=== PATIENT | male | born 1960 | race Caucasian/White ===

== ENCOUNTER 2017-02-10 02:03 | Inpatient (IN) | payer OTHER ==
[~2017-02-10] VITALS: Ht 167.6 cm; Wt 59.5 kg
[2017-02-10] VITALS (104 sets, daily range): BP systolic 54–242; BP diastolic 31–214
--- NOTE | ~2017-02-10 | HC ---
[facility] [place] [address] CONSULTATION Name: YFN MESSINA Kerri Room #: 236-P [facility] IN ..#: [id number] Admission: 02/10/17 Attend Phys: Christopher García MD Discharge: Date of : 62 Report #: [id number] THIS REPORT FOR: //name// CC: Christopher Reynolds DATE OF SERVICE: 02/10/2017 NEPHROLOGY CONSULTATION ATTENDING PHYSICIAN: Dr. García. REASON FOR CONSULTATION: Elevated creatinine with decreased urine output. HISTORY OF PRESENT ILLNESS: A 56-year-old gentleman recently hospitalized at [facility], currently we are obtaining those records. He has known severe nonischemic cardiomyopathy, hepatitis C, heavy history of alcohol abuse and IV methamphetamine abuse, who was discharged from [facility], was at home, developed respiratory deficiency, which worsened and was taken to the [place] emergency room [facility] by helicopter here. He was in severe shock with blood pressure in the 50s systolic, severely cyanotic and hypoxemic, was intubated, given pressors, fluids, and transferred here. PAST MEDICAL HISTORY: We know about nonischemic cardiomyopathy. He also has had atrial fibrillation, alcohol abuse, hepatitis C, apparently may have an elevated creatinine at baseline. HOME MEDICATIONS: Reportedly include amiodarone 400 mg b.i.d., spironolactone 25 mg b.i.d., Xarelto 20 mg daily, and carvedilol 6.25 mg b.i.d. REVIEW OF SYSTEMS: Cannot be taken. SOCIAL HISTORY: From the old charts, he has been a heavy smoker, heavy alcohol abuser. PHYSICAL EXAMINATION: GENERAL: The patient is seen in ICU. SKIN: Shows good turgor. No rashes. SKELETAL: Shows him to be well developed, well nourished, not obese. HEENT: Extraocular movements are full. Vision cannot be tested. Endotracheal tube in place. He is moving extremities about. NECK: Supple. CHEST: Shows diminished breath sounds at the bases in supine position. HEART: Irregularly irregular. ABDOMEN: Soft and nontender, quiet. EXTREMITIES: Show no edema. Peripheral pulses diminished. [facility] [address] [place] [address] CONSULTATION Name: YFN MESSINA Room #: 236-P [facility] IN [facility]#: [id number] Admission: 02/10/17 Attend Phys: Christopher García MD Discharge: Date of : 62 Report #: [id number] LABORATORY DATA: Hemoglobin is 15.6, white count 11.2, 6% bands, platelets 147,000. INR is 2.8. Sodium 137, potassium 5.8, chloride 101, bicarbonate 17, creatinine 1.8, and BUN 26. AST 2930, ALT 1202, bilirubin 4.4. ASSESSMENT AND PLAN: 1. Cardiogenic shock. He appears to be in cardiogenic shock. Sepsis also must be ruled out. Cultures and antibiotics appropriately have been given and taken. He has been resuscitated with IV fluids. His hypotension is a bit better. His urine output has been sluggish, we will check urinary sodium and creatinine for completeness because sepsis appears less likely. We will add some bicarbonate to his fluids. Continue to support and hopefully urine output will be restored. 2. Nonischemic cardiomyopathy with a very low ejection fraction. 3. History of hepatitis C. 4. History of substances abuse, methamphetamine, and alcohol. 5. History of atrial fibrillation with rapid ventricular response. <ELECTRONICALLY SIGNED> By: Joselo Acevedo MD 02/15/17 1143 0850 0953 Joselo Acevedo MD /nt
--- NOTE | ~2017-02-10 | P ---
[facility] [place] [address] PROCEDURE REPORT Name: YFN MESSINA Kerri Room #: 452-P [facility] IN M.R.#: [id number] Admission: 02/10/17 Attend Phys: Christopher García MD Discharge: Date of : 62 Report #: [id number] THIS REPORT FOR: //name// CC: Christopher Reynolds DATE OF SERVICE: 02/10/2017 PROCEDURE: Right subclavian triple-lumen catheter insertion. INDICATION: Respiratory failure, profound hypotension, bradycardia with no intravenous access and unable to obtain intravenous access. PROCEDURE NOTATION: I was called urgently at the bedside after patient arrived for stat consultation. Patient noted to have intraosseous devices in both tibia, but no IV access. Nursing unable to obtain IV access; however, the patient was on significant fluid resuscitation and pressors. Right subclavian site was chosen. The patient noted to be anticoagulated; however, given the emergent nature, this was chosen for the site of insertion. Site was cleansed with 2% chlorhexidine gluconate using maximal barrier method including full body eye sheet hat, mask, gown and gloves and using sterile technique. The patient then received 4 mL of 1% lidocaine local to the right clavicular area for planned insertion. Using the introducer needle and using an infraclavicular approach, the insertion needle was inserted and passed medially towards the first, third bend in the clavicle until venous blood was aspirated. Multiple attempts with venous blood was aspirated; however, unable to pass J wire. The patient was then given Trendelenburg with better ease of access to the vein with persistent flow. J-wire was advanced. Needle was removed, some ectopy noted on the monitor. A small dermotomy was made using the scalpel blade. A dilator was then advanced over the J wire using Seldinger technique, a triple lumen catheter was then inserted over the J wire and sutured in place at 18 cm. A Biopatch was put in place and a dressing Op-Site was put in place. Because of some oozing around the catheter site, pressure was applied by nursing at the end of procedure. Chest x-ray confirmed good position at the junction of the superior vena cava and the right atrium with no pneumothorax. The patient tolerated well with only minimal blood loss. <ELECTRONICALLY SIGNED> By: Artur Bustamante MD 02/24/17 1304 0610 0744 Artur Bustamante MD /nt
--- NOTE | ~2017-02-10 | EKG ---
[address] [place] [address] ELECTROCARDIOGRAM REPORT Name: YFN MESSINA Room #: 236-P ADM IN M.R.#: [id number] Admission: 02/10/17 Attend Phys: Christopher García MD Discharge: Date of : 62 Report #: [id number] THIS REPORT FOR: //name// [facility] Test Date: 2017-02-10 Test Time: 04:15:35 Pat Name: YFN MESSINA Department: Room: 236 P Gender: M Litigation Legal Assistant: saqib : 1960 Requested By: Celsa Jade Order Number: [id number] MD: Kane Mon Measurements Intervals [place] Rate: 89 P: MT: QRS: 66 QRSD: 144 T: 37 QT: 504 QTc: 614 Interpretive Statements Atrial fibrillation Right bundle branch block Compared to ECG 07/19/2014 08:44:36 Ventricular premature complex(es) now present Right bundle-branch block now present Sinus rhythm no longer present Electronically Signed On 02-10-2017 8:04:32 CDT by Kane Mon [email or web address] <ELECTRONICALLY SIGNED> By: Kane Mon MD, [facility] 02/10/17 0804 0415 0415 Kane Mon MD, [facility] /EPI
--- NOTE | ~2017-02-10 | HC ---
[facility] [place] [address] CONSULTATION Name: YFN MESSINA Kerri Room #: 452-P [facility] IN ..#: [id number] Admission: 02/10/17 Attend Phys: Christopher García MD Discharge: 03/03/17 Date of : 62 Report #: [id number] THIS REPORT FOR: //name// CC: Christopher Reynolds PALLIATIVE CARE CONSULTATION REQUESTING PHYSICIAN: Bola Maldonado MD REASON FOR CONSULTATION: Palliative care consultation. HISTORY OF PRESENT ILLNESS: The patient is a 57-year-old male who presented on 02/10, to [facility]. Unfortunately, at that time, the patient presented from [facility] and was found to have AFib with RVR, at that time was in shock, was put on dopamine and also ketamine and urgently life-flighted to [facility]. Shock was present as well, 70s/40s blood pressure, epinephrine was added. The patient was ventilated at [facility], which had to continue, eventually requiring tracheostomy. Unfortunately, the patient has had a PEA and jayden arrest as well on 02/10. He has not progressed to the point where he can tolerate T-piece well, been able to CPAP with some ability, but has not had significant improvement since and has had significant delirium. PAST MEDICAL HISTORY: Atrial fibrillation, chronic kidney disease stage 3, history of myocardial infarction, hepatitis C, encephalopathy from alcohol and methamphetamine use, multiple CVAs, gastroesophageal reflux disease, COPD, systolic heart failure with an EF of 15% previously. PAST SURGICAL HISTORY: Cardioversion in 2015 and catheterization also in 2015. SOCIAL HISTORY: Alcohol and methamphetamine as well as tobacco abuse in the past. , Jovita is present today, does have a brother and a son who are involved in picture. There was some confusion as has a signed DPOA. The son says that he has a signed DPOA. ____ was in our system, unfortunately we were unable to locate this. The patient's son does not have any particular copy of DPOA. There appears to be some particular argument in the family with regards to this. ALLERGIES: ZITHROMAX. MEDICATIONS AT HOME: These included amiodarone 400 mg b.i.d., Tylenol, spironolactone 25 mg b.i.d., Xarelto 20 mg daily, and carvedilol 6.25 b.i.d. REVIEW OF SYSTEMS: Unobtainable at this time from the patient. PHYSICAL EXAMINATION: [address] [address] CONSULTATION Name: YFN MESSINA Kerri Room #: 452-P [facility].#: [id number] Admission: 02/10/17 Attend Phys: Christopher García MD Discharge: 03/03/17 Date of : 62 Report #: [id number] VITAL SIGNS: On today's visit include temperature 37.8, pulse 87, respirations 18, blood pressure was 97/59, and 95% on a ventilator. GENERAL: The patient appears to have occasional grimacing, especially to touch stimuli, does not appear to be in acute distress at this point. CARDIOVASCULAR: Regular rate and rhythm. No apparent murmur. RESPIRATORY: Coarse breath sounds diffusely. ABDOMEN: Soft, nondistended, nontender. There are active bowel sounds, but diminished. EXTREMITIES: No apparent edema. LABORATORY DATA: These include hemoglobin 11.7, white blood cell 11.2. Potassium 3.4, creatinine 1.9. ASSESSMENT AND PLAN: The patient is a 57-year-old male with the following medical concerns. 1. Acute hypoxic respiratory failure. I did have a 45-minute advanced care planning discussion with the patient's spouse in front of the family. The patient though appeared to be leaning towards extubation in the future, but I did discuss this also with the patient's brother, they are having a family meeting at around 4:00 this evening to discuss further, at which time they may make a decision as to the planning if they want to pursue this. I did discuss other available options at this time, for continued intubation, continued tracheostomy and mechanical ventilation including long-term acute care. They did not appear to be amenable to this. There is some concern with regards to the son who is apparently concerned about ____ and her durable power of energy attorney status, although there is no confirmation that he has any overriding durable power of energy attorney concerning this. We will revisit tomorrow with regards to this. 2. Septic shock. This has resolved for the most part. Unfortunately, condition continues to be severe. 3. Delirium. Again, he has not had a meaningful recovery from previous. I did discuss the nature of delirium with both spouse and brother and discussed the possibility of recovery from delirium as well as the possibility of permanence or at the very least considerable time before any improvement. 4. Atrial fibrillation. Management per primary team. I will continue to follow with this patient. Please call us for any questions regarding this patient's care. We will follow up to see if a decision was made with regards to care tomorrow. <ELECTRONICALLY SIGNED> By: Nasir Pandey DO 03/30/17 1357 058 Momo Pandey DO /andrei
--- NOTE | ~2017-02-10 | EKG ---
[address] [address] ELECTROCARDIOGRAM REPORT Name: YFN MESSINA Room #: 236- ADM IN M.R.#: [id number] Admission: 02/10/17 Attend Phys: Christopher García MD Discharge: Date of : 62 Report #: [id number] THIS REPORT FOR: //name// [facility] Test Date: 2017-02-17 Test Time: 19:39:03 Pat Name: YFN MESSINA Department: Room: 236 Gender: M Artillery Specialist: Juliana LYONS : 1960 Requested By: Obed Ring Order Number: [id number] MD: Kane Mon Measurements Intervals [place] Rate: 93 P: RI: QRS: 32 QRSD: 87 T: -26 QT: 411 QTc: 512 Interpretive Statements Atrial fibrillation Ventricular premature complex Nonspecific ST and T wave abnormality Prolonged QT interval Compared to ECG 02/14/2017 08:04:32 Nonspecific change in the ST and T-wave segments Electronically Signed On 02-18-2017 9:01:09 CDT by Kane Mon [email or web address] <ELECTRONICALLY SIGNED> By: Kane Mon MD, [facility] 02/18/17900 38 38 Kane Mon MD, [facility] /EPI
--- NOTE | ~2017-02-10 | HC ---
[facility] [place] [address] CONSULTATION Name: YFN MESSINA Room #: 452-P [facility] IN .R.#: [id number] Admission: 02/10/17 Attend Phys: Christopher García MD Discharge: Date of : 62 Report #: [id number] THIS REPORT FOR: //name// CC: Celsa Reynolds DATE OF SERVICE: 02/10/2017 REFERRING PROVIDER: DANN Sun. Hospitalist Service. REASON FOR CONSULTATION: Respiratory failure. CHIEF COMPLAINT: Shortness of breath. HISTORY OF PRESENT ILLNESS: Our group was asked emergently to see the patient early this morning. The patient arrived from [facility], hypotensive, cyanotic, on mechanical ventilatory support with intraosseous access. The patient is on vent, unresponsive, unable to give any history, family not available. Apparently, he presented to the Emergency Department there after recent discharge from [facility] of unclear diagnosis, was found to be in shock and bradycardic. The patient was again started on fluid boluses, epinephrine, dopamine intraosseous and subsequently transferred here. No other immediate history is available. The patient apparently anticoagulated with Eliquis by medications, was noted to be profoundly hypoxic and relatively hypercapnic, acidemic with an elevated lactate in spite of 100% FiO2 on mechanical ventilatory support. Initial drug screen is negative. ALLERGIES: Include azithromycin. PAST MEDICAL HISTORY: 1. Cardiomyopathy. 2. History of prior alcohol with amphetamine abuse. 3. History of atrial fibrillation. 4. History of hepatitis C. 5. Status of treatment uncertain. 6. Gastroesophageal reflux disease. 7. Underlying COPD. 8. Ongoing tobacco abuse. 9. Chronic renal insufficiency stage 3 by notes. SOCIAL HISTORY: Past drug and tobacco abuse, unclear active use, unable to obtain any further history. FAMILY HISTORY: Unobtainable due to current status. [facility] [address] [place] [address] CONSULTATION Name: YFN MESSINA Kerri Room #: 452-P [facility] IN [facility].#: [id number] Admission: 02/10/17 Attend Phys: Christopher García MD Discharge: Date of : 62 Report #: [id number] REVIEW OF SYSTEMS: Otherwise, unobtainable due to his current status. OUTPATIENT MEDICATIONS: Include lorazepam, carvedilol, lisinopril, aspirin, apixaban. PHYSICAL EXAMINATION: GENERAL: The patient is intubated, tachypneic, poorly responsive, some posturing noted at times. ENT: Endotracheal tube in place, cannot fully access oropharynx. NECK: Supple. No lymphadenopathy. Jugular venous pressure did not appear elevated. LUNGS: Diminished, tachypneic with diffuse expiratory wheezes noted. CARDIOVASCULAR: Heart was regular. I could not appreciate murmurs, although heart tones were distant. ABDOMEN: Soft, did not appear tender or have any masses, no ascites appreciated. EXTREMITIES: Bilateral tibial intraosseous device is in place. Significant livedo reticularis noted over both knees and feet with some acrocyanosis of the lower extremities, markedly diminished pulses throughout, although present. LABORATORY DATA: White blood cell count 11,000, hemoglobin 16, hematocrit 48, platelet count 147, MCV is 105. Sodium 137, potassium 5.8, chloride 101, bicarbonate 17, BUN 26, creatinine 1.8, glucose 107. AST 2930, and ALT 1202. Troponin 0.24. INR was 2.8. Urinalysis with significant proteinuria, some blood noted in the urine, bilirubin noted in the urine. Initial arterial blood gas on assist control, rate of 16, tidal volume 500, FiO2 of 100% revealed pH 7.18, pCO2 of 48, pO2 of 76, bicarbonate 17, lactate was 10. IMPRESSION: 1. Significant hypercapnic and hypoxemic respiratory failure of unclear etiology, chest radiograph appears clear. We will consider the possibility of early sepsis. Pulmonary embolism certainly should be considered despite being anticoagulated. Given the findings on exam and radiographs, this does not appear to be an acute congestive heart failure process. Findings may be related to early acute respiratory distress syndrome, also associated with his acute events or perhaps just prolonged poor ventilation in general. 2. History of atrial fibrillation, now with some bradycardia. Cardiology consultation pending. 3. History of non-ischemic cardiomyopathy. 4. Chronic obstructive pulmonary disease. 5. History of substance abuse. 6. History of tobacco abuse. 7. Elevated liver function tests. SUGGESTIONS: 1. Treat as sepsis. We will check CVP, trend lactate, check cultures, add [address] [address] CONSULTATION Name: YFN MESSINA Room #: 452-P [facility] IN M.R.#: [id number] Admission: 02/10/17 Attend Phys: Christopher García MD Discharge: Date of : 62 Report #: [id number] antibiotics. 2. Obtain records from [facility]. 3. Discuss with family when available for more acute events. 4. Check ventilation/perfusion scan and lower extremity venous Dopplers. 5. Echocardiogram. 6. ICU care. 7. Central venous catheter insertion and removal of intraosseous devices. 8. Further recommendations to follow. Total critical care time, one hour, not including any procedures. <ELECTRONICALLY SIGNED> By: Artur Bustamante MD 02/24/17 1304 0607 0735 Artur Bustamante MD /nt
--- NOTE | ~2017-02-10 | 2DMMODE ---
[facility] [address] [place] [address] 2 D/M-MODE ECHOCARDIOGRAM Name: YFN MESSINA Room #: 236-P ADM IN M.R.#: [id number] Admission: 02/10/17 Attend Phys: Christopher García MD Discharge: Date of : 62 Date of Service: 02/10/17 0853 Report #: [id number] THIS REPORT FOR: //name// APPROVED REPORT Study performed: 02/10/2017 07:18:01 EXAM: Comprehensive 2D, Doppler, and color-flow Echocardiogram Patient Location: ICU Room #: 236 Status: routine BSA: 1.82 HR: 105 bpm BP: 162/121 mmHg Rhythm: Atrial Fibrillation Other Information Study Quality: Good/ICU on vent Indications Bradycardia, respiratory failure, possible pulmonary embolism. Hx: Cardiomyopathy, Afib, drug and alcohol abuse. 2D Dimensions RVDd: 45.25 mm LVEF(%): 34.42 (>50%) IVSd: 12.86 (7-11mm) LVOT Diam: 21.67 (18-24mm) LVDd: 49.44 mm PWd: 13.04 (7-11mm) Ascending Ao: 42.37 (22-36mm) LVDs: 41.30 (25-40mm) Aortic Root: 42.46 mm Sanders's LVEF: 34.42 % Volumes Left Atrial Volume (Systole) Single Plane 4CH: 67.81 mL Single Plane 2CH: 67.15 mL LA ESV Index: 41.00 mL/m2 Aortic Valve AoV Peak Jacobo.: 1.44 m/s AO Peak Gr.: 8.77 mmHg LVOT Max P.94 mmHg AO Mean Gr.: 5.66 mmHg AO V2 Mean: 1.13 m/s LVOT Max V: 0.67 m/s AO V2 VTI: 20.71 cm PADMINI Vmax: 1.72 cm2 [facility] [place] [address] 2 D/M-MODE ECHOCARDIOGRAM Name: YFN MESSINA Room #: 236-P [facility] IN .R.#: [id number] Admission: 02/10/17 Attend Phys: Christopher García MD Discharge: Date of : 62 Date of Service: 02/10/17 0853 Report #: [id number] Mitral Valve MV Decel. Time: 85.41 ms MV E Max Jacobo.: 0.64 m/s Pulmonary Valve PV Peak Jacobo.: 0.38 m/s PV Peak Gr.: 0.58 mmHg Tricuspid Valve TR Peak Jacobo.: 2.61 m/s RAP Estimate: 15.00 mmHg TR Peak Gr.: 27.20 mmHg PA Pressure: 42.00 mmHg Left Ventricle The left ventricle is normal size. Mild concentric left ventricular hypertrophy. Left ventricular systolic function is severely decreased. LVEF 25%. This study is not technically sufficient to allow evaluation of the LV diastolic function due to atrial fibrillation. Right Ventricle Right ventricle is moderately dilated. Right ventricular systolic function is moderate to severely reduced. Atria Left atrium is moderately dilated. The atrial septum is aneurysmal. Right atrium is moderately dilated. Aortic Valve Aortic valve is moderately calcified. Cannot rule out bicuspid valve Mild to moderate aortic regurgitation. Mild aortic stenosis. Calculated PADMINI by the continuity equation is 1.7cm2. Mitral Valve Mitral valve leaflets are normal Trace mitral regurgitation. Tricuspid Valve The tricuspid valve is normal in structure. There is moderate tricuspid regurgitation. The right atrial pressure is estimated at 15 mmHg. There is moderate pulmonary hypertension with an estimated PAP of 42mmHg. Pulmonic Valve The pulmonary valve is normal in structure. Trace pulmonic regurgitation. [facility] [address] [place] [address] 2 D/M-MODE ECHOCARDIOGRAM Name: YFN MESSINA Room #: 236-P [facility] IN [facility]#: [id number] Admission: 02/10/17 Attend Phys: Christopher García MD Discharge: Date of : 62 Date of Service: 02/10/17 0853 Report #: [id number] Great Vessels Aortic root is dilated at 4.2cm. Ascending aorta is dilated at 4.2cm. IVC is dilated and collapses <50% with inspiration. Pericardium There is no pericardial effusion. Left pleural effusion noted. <Conclusion> Left ventricular systolic function is severely decreased. LVEF 25%. Right ventricle is moderately dilated. Both atria are moderately dilated. Atrial septal aneurysm Aortic valve is moderately calcified, possibly bicuspid Mild to moderate aortic regurgitation. Probably mild aortic stenosis. Calculated PADMINI by the continuity equation is 1.7cm2. Mitral valve leaflets are normal. No mitral insufficiency Pulmonary artery pressure of 42mmHg There is no pericardial effusion. Ascending aorta is dilated at 4.2cm. Left pleural effusion noted. <ELECTRONICALLY SIGNED> By: Kane Mon MD, FACC 02/10/17 0853 Kane Mon MD, FACC /INF
--- NOTE | ~2017-02-10 | EKG ---
[address] [address] ELECTROCARDIOGRAM REPORT Name: YFN MESSINA Room #: 236- ADM IN M.R.#: [id number] Admission: 02/10/17 Attend Phys: Christopher García MD Discharge: Date of : 62 Report #: [id number] THIS REPORT FOR: //name// [facility] Test Date: 2017-02-14 Test Time: 08:04:32 Pat Name: YFN MESSINA Department: Room: 236 Gender: M Advertising Sales Consultant: CHARLETTE : 1960 Requested By: Jp Sutton Order Number: [id number] MD: Kane Mon Measurements Intervals [place] Rate: 103 P: IN: QRS: 3 QRSD: 91 T: 220 QT: 363 QTc: 475 Interpretive Statements Atrial fibrillation Ventricular premature complex Abnormal R-wave progression, late transition Abnormal T, diffuse leads Compared to ECG 02/10/2017 04:15:35 Ventricular premature complex(es) now present Right bundle-branch block no longer present Electronically Signed On 02-15-2017 8:19:20 CDT by Kane Mon [email or web address] <ELECTRONICALLY SIGNED> By: Kane Mon MD, [facility] 02/15/1719 3 3 Kane Mon MD, [facility] /EPI
--- NOTE | ~2017-02-10 | 2DMMODE ---
[facility] [address] [place] [address] 2 D/M-MODE ECHOCARDIOGRAM Name: YFN MESSINA Kerri Room #: 236-P ADM IN .R.#: [id number] Admission: 02/10/17 Attend Phys: Christopher García MD Discharge: Date of : 62 Date of Service: 02/16/17 1541 Report #: [id number] THIS REPORT FOR: //name// APPROVED REPORT Study performed: 02/16/2017 14:02:14 EXAM: Comprehensive 2D, Doppler, and color-flow Echocardiogram Patient Location: ICU Room #: 236 Status: routine BSA: 1.78 HR: 90 bpm BP: 159/90 mmHg Other Information Study Quality: Good Indications Aortic Valve Disease CVA/TIA Atrial Fibrillation Left Ventricle The left ventricle is normal size. There is global hypokinesis of the left ventricle. Mild concentric left ventricular hypertrophy. Left ventricular systolic function is severely decreased. LVEF is 25%. Right Ventricle Right ventricle is dilated. Right ventricle is hypokinetic. Atria Left atrium is dilated. Interatrial septum is intact without evidence of ASD or PFO with clor flow doppler or agitated saline injection. Atrial septal aneurysm is present without PFO. Right atrium is dilated. Aortic Valve Aortic valve is calcified. Cannot rule out bicuspid Aortic valve. This study was of limited quality, unable to rule out vegetation There is normal aortic valve excursion. Mitral Valve [facility] [address] [place] [address] 2 D/M-MODE ECHOCARDIOGRAM Name: YFN MESSINA Room #: 236-P ADM IN M.R.#: [id number] Admission: 02/10/17 Attend Phys: Christopher García MD Discharge: Date of : 62 Date of Service: 02/16/17 154 Report #: [id number] The mitral valve is normal in structure. Tricuspid Valve The tricuspid valve is normal in structure. Pulmonic Valve The pulmonary valve is normal in structure. Great Vessels The aortic root is normal in size. Pericardium There is no pericardial effusion. <Conclusion> LVEF is 25%. There is global hypokinesis of the left ventricle. Interatrial septum is intact without evidence of ASD or PFO with clor flow doppler or agitated saline injection. Atrial septal aneurysm is present without PFO. Right ventricle is hypokinetic. Left atrium is dilated. Right atrium is dilated. This study was of limited quality, unable to rule out vegetation <ELECTRONICALLY SIGNED> By: Sekou Fung MD, FACC 02/16/17 1541 [id number] Sekou Fung MD, FACC /INF
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
--- NOTE | ~2017-02-10 | HC ---
[facility] [place] [address] CONSULTATION Name: YFN MESSINA Kerri Room #: 236-P ADM IN M.R.#: [id number] Admission: 02/10/17 Attend Phys: Christopher García MD Discharge: Date of : 62 Report #: [id number] THIS REPORT FOR: //name// CC: Obed Gary MD [facility] Joselo Bustamante MD DATE OF SERVICE: 02/10/2017 GASTROENTEROLOGY CONSULTATION Patient of Dr. Christopher García. CHIEF COMPLAINT: The patient is a 56-year-old white male who is known to me from previous evaluation in June 2004. The patient presented to the [facility] via [facility] from [facility] in [place], [place] who was in acute respiratory failure, hypotensive and atrial fibrillation with rapid ventricular response and in acute respiratory failure. He was unresponsive at the time of arrival according to the patient's hospital chart. We are asked to see this patient for possible etiologies of a sudden sharp rise in his liver enzymes. PAST MEDICAL HISTORY: Patient has a past medical history of cardiomyopathy, hypertension, hyperlipidemia, chronic hepatitis C, alcohol abuse, methamphetamine abuse, and supraventricular tachycardia. PAST SURGICAL HISTORY: Significant for ankle surgery and hernia repair. This historical data is obtained from the patient's records as no family member was present and the patient is unresponsive at the time of my consultation. ALLERGIES: AZITHROMYCIN. MEDICATIONS: His medications prior to admission included acetaminophen, amiodarone, carvedilol, Xarelto, and Aldactone. SOCIAL HISTORY: The patient used to be a very heavy smoker. He does drink alcohol. He does use street drugs. He has shared IV needles in the past. FAMILY HISTORY: Significant for colon cancer in his father. REVIEW OF SYSTEMS: Not obtainable at this time due to circumstances mentioned above. [facility] [address] [place] [address] CONSULTATION Name: YFN MESSINA Room #: 236-[facility]#: [id number] Admission: 02/10/17 Attend Phys: Christopher García MD Discharge: Date of : 62 Report #: [id number] PHYSICAL EXAMINATION: GENERAL: Reveals a well-developed, well-nourished, somewhat obese 56-year-old white male who is intubated on the vent and unresponsive. HEENT: Normocephalic and atraumatic. He may be mildly icteric. His nose is cyanotic in appearance. I am told on arrival, he was completely cyanotic. HEART: Irregularly irregular, rate is controlled at this time. LUNGS: Clear to auscultation with decreased breath sounds at the bases. ABDOMEN: Distended, soft, no bowel sounds are heard. The patient moves his legs with deep palpation of the abdomen, which may mean discomfort. He has no acute peritoneal signs at the time of my examination. There is no rebound or guarding. EXTREMITIES AND INTEGUMENTARY: Cool, dry and pale. I cannot palpate peripheral pulses. He is currently on pressor support with IV medications. Healing and crusted lesions, scattered all over his body that were brown in color, non-draining. These may be from skin popping of drugs. VITAL SIGNS: Blood pressure is currently 106/84, pulse 110, and respirations 30. He has been afebrile since he has been at the hospital. His height is 5 feet 6 inches, his weight 171 pounds. SIGNIFICANT LABORATORY DATA: Showed a BUN of 26, creatinine of 1.8. AST was 2930, ALT was 1202, alk phos was 82. Total bilirubin was 4.4, albumin was 3.1, ammonia 42. Lactic acid level, not obtained at this point. Troponin 0.24, it is later jaki to 6.31. BNP was greater than 70,000. INR was 2.8. Drug screen was negative. CBC showed a white blood cell count of 11.2, hemoglobin 15.6, hematocrit 48.4, MCV 105. The rest of his indices and RDW are normal; platelets 147,000. He had 69 polys, 6 bands, 1 metamyelocyte, 1 ____. He was noted to have 1+ macrocytosis. TSH was ____ in the past with a history of positive hepatitis C in the past. He is MRSA positive. His initial blood gas showed pH of 7.178, pCO2 of 47, pO2 of 75.8, bicarb 17, base excess -11, lactate 10.14, his oxygen saturation was 89%, this was on 100% FiO2 with respiratory rate of 16, tidal volume 500 and PEEP of 5. The patient had a lower venous extremity Doppler study that was negative for clots. Chest x-ray from line placement showed adequate line placement. Nuclear medicine lung perfusion scan was low probability for pulmonary embolus. CT scan of the chest showed a large right pleural effusion layering dependently. Heart was enlarged. There was a lower right rib posterior fracture. Calcification in the inferior thyroid suggesting calcified thyroid mass 11 mm in size, moderate to extensive ascites, no free intraperitoneal air or definite pneumotosis intestinalis. 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 Liver showed fatty infiltration. Gallbladder was somewhat limited in detail as it was nondistended. Left adrenal gland showed some thickening with possible hyperplasia or small mass, extensive ascites was noted. There was possible colonic wall thickening of the sigmoid and descending, ischemia could cause this. There was no definite pneumotosis coli. There was fatty infiltration of the liver. CT of the head was negative for acute changes. [facility] [address] [place] [address] CONSULTATION Name: YFN MESSINA Room #: 236-P [facility] IN .[place].#: [id number] Admission: 02/10/17 Attend Phys: Christopher García MD Discharge: Date of : 62 Report #: [id number] IMPRESSION: 1. Most likely this liver enzyme elevation is due to shock liver from hypotension that occurred over the prior 24-hour period. The patient required high-dose pressors while in the hospital and I was told that his blood pressure upon arrival to the hospital was 50 systolic and that he was unresponsive. He probably also has some degree of hepatic encephalopathy. 2. Potentially complicating factors include his history of chronic hepatitis C and alcohol use. He may have cirrhosis at this time, prolonged hypotension in this setting can be devastating to a cirrhotic liver or normal liver for that matter and potentially cause complete liver failure. 3. Ascites, moderately extensive, possible spontaneous bacterial peritonitis exists here. 4. Prolonged INR, probably multifactorial including sepsis, chronic liver disease, and shock liver. 5. History of chronic hepatitis C. 6. History of chronic drug and alcohol use. 7. Elevated lactate level that apparently is rising, may be due to prolonged hypoxemia and this resulting ischemia of organs, this includes possible ischemic colitis of the left colon and possible hepatic ischemia. 8. Acute renal injury. 9. Cardiogenic shock, prior history of left ventricular ejection fraction of 15%. 10. Large right pleural effusion, may be related to ascites or trauma. 11. Elevated troponin of 6.31 in a patient with a non-ST segment elevation myocardial infraction. 12. Methicillin-resistant Staphylococcus aureus. 13. Atrial fibrillation with a history of rapid ventricular response. He did have some bradycardia during this admission. 14. Macrocytosis. 15. Calcified inferior thyroid nodule, possible left adrenal adenoma. 16. The patient has some ____ in his left lung, has probably been there a while. 17. Thickened descending and sigmoid colon tovar, possibly ischemia due to hypotension and poor perfusion. 18. Family history of colon cancer in his father. RECOMMENDATIONS: My recommendations are as follows. 1. I would recommend obtaining medical records from [facility] from his recent admission there. 2. We would maintain adequate blood pressure for good perfusion of his liver and all organs. 3. We would consider adding lactulose to his regimen to prevent development of cerebral edema and uncal herniation. 4. Correct INR if there are signs of bleeding. 5. Monitor liver enzymes, INR and try to avoid hepatotoxic medications if possible. [facility] [address] [place] [address] CONSULTATION Name: YFN MESSINA Room #: 236-P [facility] IN M.R.#: [id number] Admission: 02/10/17 Attend Phys: Christopher García MD Discharge: Date of : 62 Report #: [id number] 6. Agree with broad-spectrum antibiotics for possible spontaneous bacterial peritonitis and possible surgical intervention for possible left colonic ischemia, although the patient is an extremely poor surgical candidate due to his multiple acute and chronic medical problems. 7. Overall, his prognosis is extremely grim based on the events of this day and his comorbidities. Thank you very much for allowing me to participate in his care. <ELECTRONICALLY SIGNED> By: Amanda Sheikh DO 02/12/17 1011 1118 [id number] Amanda Sheikh DO /nt
[~2017-02-10 02:03] MED LIST: ALDACTONE25 MG PO; CARDIZEM CD120 MG PO; CEPACOL SORE T1 EAC8 PO; CHILDREN'S ASPI81 M1 PO; COREG6.25 MG PO; PACERONE 200 M200 M1 PO; TYLENOL325 MG PO; XARELTO10 MG PO
[2017-02-10 04:07] LABS: ABG SAMPLE TYPE ARTERIAL; HCO3 17.3 mmol/L (22.0-26.0); LACTATE 10.14 mmol/L (0.5-2.0); O2(CT) 18.7 mL/dL (15.0-23.0); PCO2 47.6 mmHg (35.0-45.0); PO2 75.8 mmHg (80.0-100.0); TIDAL VOLUME 500 ml; sO2 91.6 % (92.0-98.0); tCO2 18.7 mmol/L (24.0-30.0)
[2017-02-10 04:08] LABS: pH 7.178 (7.360-7.450)
[2017-02-10 04:12] LABS: HEMATOCRIT 48.4 % (42.0-52.0); HEMOGLOBIN 15.6 gm/dL (14.0-18.0); MCH 33.9 pg (26.0-34.0); MCHC 32.3 g/dL (28.0-37.0); PLATELET COUNT 147 thou/uL (150-400); RBC 4.61 mil/uL (4.50-6.00); RDW 16.5 % (10.5-14.5); WBC 11.2 thou/uL (4.0-11.0)
[2017-02-10 04:14] LABS: MANUAL DIFF YES
[2017-02-10 04:27] LABS: APTT 36.9 Seconds (24.5-32.8); CALCIUM 8.2 mg/dL (8.5-10.1); CREATININE 1.8 mg/dL (0.7-1.3); INR 2.8; POTASSIUM 5.8 mmol/L (3.5-5.1); PROTIME 28.6 Seconds (9.3-11.4)
[2017-02-10 04:32] LABS: URINE BILIRUBIN 2+ (Negative); URINE BLOOD 3+ (Negative); URINE COLOR YELLOW; URINE GLUCOSE-RANDOM* NEGATIVE (Negative); URINE KETONES NEGATIVE (Negative); URINE LEUKOCYTES-REFLEX NEGATIVE (Negative); URINE PROTEIN (DIPSTICK) 3+ (Negative); URINE SPECIFIC GRAVITY >= 1.030 (1.003-1.035)
[2017-02-10 04:38] LABS: ALBUMIN 3.1 g/dL (3.4-5.0); MAGNESIUM 2.1 mg/dL (1.8-2.4); TOTAL BILIRUBIN 4.4 mg/dL (<0.1-1.0); TROPONIN-I 0.24 ng/mL (<0.04-0.07)
[2017-02-10 04:53] LABS: ICTOTEST (BILI CONFIRMATORY) Positive (Negative)
[2017-02-10 04:58] LABS: TOTAL PROTEIN 7.3 g/dL (6.4-8.2)
[2017-02-10 05:00] LABS: CASTS None Seen /LPF (None Seen); SQUAMOUS None Seen /LPF (0-3); URINE WBC-REFLEX 0-5 Rare /HPF (0-5)
[2017-02-10 05:01] LABS: CRYSTALS None Seen /LPF (None Seen); HYALINE CASTS 4-10 Moderate /LPF (None Seen); TRANSITIONAL EPITHEL CELL 4-10 Moderate /LPF (None Seen)
[2017-02-10 05:20] LABS: ABSOLUTE NEUTROPHILS 8.4 thou/uL (1.4-8.2); ANISOCYTOSIS 1+; MACROCYTES 1+; METAMYELOCYTES 1 %; MYELOCYTES 1 %; TOTAL CELL COUNT 100
[2017-02-10 05:28] LABS: AMP/METHAMP Negative (Negative); BARBITURATES Negative (Negative); BENZODIAZEPINES Negative (Negative); COCAINE Negative (Negative); METHADONE Negative (Negative); OPIATES Negative (Negative); PCP Negative (Negative); THC Negative (Negative)
[2017-02-10 07:13] LABS: ABG SAMPLE TYPE ARTERIAL; BE(vivo) -10.1 mmol/L (-2 to +3); HCO3 14.8 mmol/L (22.0-26.0); O2(CT) 20.8 mL/dL (15.0-23.0); O2Hb 93.7 % (92.0-98.0); PCO2 30.7 mmHg (35.0-45.0); PO2 81.3 mmHg (80.0-100.0); sO2 95.1 % (92.0-98.0); tCO2 15.8 mmol/L (24.0-30.0)
[2017-02-10 07:14] LABS: LACTATE 8.67 mmol/L (0.5-2.0); STICK SITE L.BRACHIAL; TIDAL VOLUME 600 ml; pH 7.302 (7.360-7.450)
[2017-02-10 11:57] LABS: URINE CREATININE-RANDOM* 139.8 mg/dL
[2017-02-10 14:00] LABS: ALBUMIN 2.8 g/dL (3.4-5.0); CALCIUM 8.2 mg/dL (8.5-10.1); CREATININE 1.9 mg/dL (0.7-1.3); PHOSPHORUS 5.5 mg/dL (2.5-4.9)
[2017-02-10 14:02] LABS: POTASSIUM 4.5 mmol/L (3.5-5.1)
[2017-02-10 15:16] LABS: HEMATOCRIT 46.1 % (42.0-52.0); HEMOGLOBIN 14.9 gm/dL (14.0-18.0)
[2017-02-10 23:44] LABS: ABG SAMPLE TYPE ARTERIAL; HCO3 16.9 mmol/L (22.0-26.0); O2(CT) 1.8 mL/dL (15.0-23.0); O2Hb 8.2 % (92.0-98.0); PCO2 66.4 mmHg (35.0-45.0); PO2 14.8 mmHg (80.0-100.0); STICK SITE LRA; tCO2 18.9 mmol/L (24.0-30.0)
[2017-02-10 23:44] LABS: HEMATOCRIT 50.1 % (42.0-52.0); HEMOGLOBIN 16.1 gm/dL (14.0-18.0); MCH 33.6 pg (26.0-34.0); MCHC 32.1 g/dL (28.0-37.0); MCV 104.7 fL (80.0-100.0); RBC 4.79 mil/uL (4.50-6.00); RDW 16.6 % (10.5-14.5); WBC 13.6 thou/uL (4.0-11.0)
[2017-02-10 23:45] LABS: ABG COMMENT POSSIBLE VENOUS; TIDAL VOLUME 500 ml; pH 7.023 (7.360-7.450)
[2017-02-11] VITALS (88 sets, daily range): BP systolic 40–154; BP diastolic 17–123
[2017-02-11 00:10] LABS: ABG SAMPLE TYPE ARTERIAL; BE(vivo) -15.3 mmol/L (-2 to +3); HCO3 15.4 mmol/L (22.0-26.0); LACTATE 10.34 mmol/L (0.5-2.0); O2(CT) 20.7 mL/dL (15.0-23.0); O2Hb 92.4 % (92.0-98.0); PCO2 55.8 mmHg (35.0-45.0); PO2 92.6 mmHg (80.0-100.0); sO2 93.2 % (92.0-98.0); tCO2 17.2 mmol/L (24.0-30.0)
[2017-02-11 00:11] LABS: Pressure Support 5 cm H20; TIDAL VOLUME 24 ml
[2017-02-11 00:14] LABS: CALCIUM 7.8 mg/dL (8.5-10.1); CREATININE 2.4 mg/dL (0.7-1.3); POTASSIUM 4.9 mmol/L (3.5-5.1)
[2017-02-11 05:20] LABS: HEMATOCRIT 46.6 % (42.0-52.0); HEMOGLOBIN 15.3 gm/dL (14.0-18.0); MCHC 32.9 g/dL (28.0-37.0); MCV 100.3 fL (80.0-100.0); RBC 4.64 mil/uL (4.50-6.00); RDW 15.3 % (10.5-14.5); WBC 13.1 thou/uL (4.0-11.0)
[2017-02-11 05:49] LABS: ALBUMIN 2.6 g/dL (3.4-5.0); CALCIUM 8.1 mg/dL (8.5-10.1); CREATININE 2.5 mg/dL (0.7-1.3); PHOSPHORUS 5.3 mg/dL (2.5-4.9); POTASSIUM 3.7 mmol/L (3.5-5.1)
[2017-02-11 05:59] LABS: ABG SAMPLE TYPE ARTERIAL; BE(vivo) -2.2 mmol/L (-2 to +3); HCO3 22.4 mmol/L (22.0-26.0); O2(CT) 20.8 mL/dL (15.0-23.0); O2Hb 90.3 % (92.0-98.0); PCO2 38.1 mmHg (35.0-45.0); PO2 63.8 mmHg (80.0-100.0); STICK SITE RRA; pH 7.387 (7.360-7.450); sO2 92.3 % (92.0-98.0); tCO2 23.6 mmol/L (24.0-30.0)
[2017-02-11 06:00] LABS: ABG COMMENT AC24 500 +5 100%; LACTATE 4.17 mmol/L (0.5-2.0); TIDAL VOLUME 500 ml
[2017-02-11 06:04] LABS: TOTAL PROTEIN 5.5 g/dL (6.4-8.2)
[2017-02-12] VITALS (97 sets, daily range): BP systolic 71–139; BP diastolic 42–91
[2017-02-12 05:35] LABS: ABSOLUTE NEUTROPHILS 6.6 thou/uL (1.4-8.2); EOSINOPHILS 0.3 % (0.0-3.0); HEMATOCRIT 44.9 % (42.0-52.0); HEMOGLOBIN 15.3 gm/dL (14.0-18.0); LYMPHOCYTES 17.4 % (24.0-44.0); MCH 33.8 pg (26.0-34.0); MCHC 34.2 g/dL (28.0-37.0); MCV 98.9 fL (80.0-100.0); MONOCYTES 10.1 % (1.0-8.0); PLATELET COUNT 151 thou/uL (150-400); POLYS 71.2 % (36.0-66.0); RBC 4.54 mil/uL (4.50-6.00); RDW 15.6 % (10.5-14.5); WBC 9.3 thou/uL (4.0-11.0)
[2017-02-12 05:36] LABS: MANUAL DIFF NO
[2017-02-12 05:47] LABS: ABG SAMPLE TYPE ARTERIAL; BE(vivo) 3.5 mmol/L (-2 to +3); HCO3 25.7 mmol/L (22.0-26.0); LACTATE 3.09 mmol/L (0.5-2.0); O2(CT) 21.4 mL/dL (15.0-23.0); O2Hb 96.3 % (92.0-98.0); PCO2 32.1 mmHg (35.0-45.0); PO2 85.6 mmHg (80.0-100.0); STICK SITE L.BRACHIAL; pH 7.521 (7.360-7.450); sO2 97.4 % (92.0-98.0); tCO2 26.7 mmol/L (24.0-30.0)
[2017-02-12 05:48] LABS: ABG COMMENT A/C 24; TIDAL VOLUME 500 ml
[2017-02-12 05:52] LABS: ALBUMIN 2.2 g/dL (3.4-5.0); CREATININE 2.6 mg/dL (0.7-1.3); MAGNESIUM 1.7 mg/dL (1.8-2.4); PHOSPHORUS 3.8 mg/dL (2.5-4.9); POTASSIUM 3.8 mmol/L (3.5-5.1); TOTAL BILIRUBIN 4.6 mg/dL (<0.1-1.0)
[2017-02-12 06:40] LABS: TOTAL PROTEIN 5.5 g/dL (6.4-8.2)
[2017-02-13] VITALS (64 sets, daily range): BP systolic 82–137; BP diastolic 48–98
[2017-02-13 06:56] LABS: ALBUMIN 2.2 g/dL (3.4-5.0); CALCIUM 8.2 mg/dL (8.5-10.1); CREATININE 2.3 mg/dL (0.7-1.3); PHOSPHORUS 3.9 mg/dL (2.5-4.9); POTASSIUM 3.8 mmol/L (3.5-5.1)
[2017-02-13 07:15] LABS: TOTAL PROTEIN 5.9 g/dL (6.4-8.2)
[2017-02-13 11:23] LABS: ABG SAMPLE TYPE ARTERIAL; BE(vivo) 8.4 mmol/L (-2 to +3); HCO3 31.1 mmol/L (22.0-26.0); LACTATE 2.18 mmol/L (0.5-2.0); O2(CT) 21.2 mL/dL (15.0-23.0); O2Hb 91.4 % (92.0-98.0); PCO2 36.5 mmHg (35.0-45.0); PO2 62.5 mmHg (80.0-100.0); STICK SITE R.RADIAL; pH 7.548 (7.360-7.450); sO2 94.5 % (92.0-98.0); tCO2 32.2 mmol/L (24.0-30.0)
[2017-02-13 11:24] LABS: TIDAL VOLUME 500 ml
[2017-02-13 11:50] LABS: HEMATOCRIT 44.2 % (42.0-52.0); HEMOGLOBIN 15.3 gm/dL (14.0-18.0); MCH 33.9 pg (26.0-34.0); MCHC 34.6 g/dL (28.0-37.0); RBC 4.51 mil/uL (4.50-6.00); RDW 15.3 % (10.5-14.5); WBC 7.8 thou/uL (4.0-11.0)
[2017-02-14] VITALS (23 sets, daily range): BP systolic 107–142; BP diastolic 64–100
[2017-02-14 05:21] LABS: HEMATOCRIT 42.5 % (42.0-52.0); HEMOGLOBIN 14.2 gm/dL (14.0-18.0); MCHC 33.3 g/dL (28.0-37.0); RBC 4.29 mil/uL (4.50-6.00); RDW 15.6 % (10.5-14.5); WBC 6.1 thou/uL (4.0-11.0)
[2017-02-14 05:26] LABS: PROTIME 12.4 Seconds (9.3-11.4)
[2017-02-14 05:31] LABS: ALBUMIN 2.2 g/dL (3.4-5.0); CALCIUM 8.5 mg/dL (8.5-10.1); CREATININE 2.2 mg/dL (0.7-1.3); DIGOXIN 1.5 ng/mL (0.9-2.0); POTASSIUM 3.7 mmol/L (3.5-5.1)
[2017-02-14 05:36] LABS: INR 1.2
[2017-02-14 13:57] LABS: ABG SAMPLE TYPE ARTERIAL; BE(vivo) 11.2 mmol/L (-2 to +3); HCO3 36.3 mmol/L (22.0-26.0); LACTATE 1.66 mmol/L (0.5-2.0); O2(CT) 20.8 mL/dL (15.0-23.0); O2Hb 95.3 % (92.0-98.0); PO2 86.8 mmHg (80.0-100.0); pH 7.496 (7.360-7.450); sO2 97.1 % (92.0-98.0); tCO2 37.7 mmol/L (24.0-30.0)
[2017-02-14 13:58] LABS: STICK SITE R.RADIAL
[2017-02-14 13:59] LABS: ABG COMMENT CPAP TRIAL; Pressure Support 8 cm H20; TIDAL VOLUME 485 ml
[2017-02-15] VITALS (32 sets, daily range): BP systolic 107–149; BP diastolic 65–99
[2017-02-15 04:22] LABS: HEMATOCRIT 40.2 % (42.0-52.0); HEMOGLOBIN 13.5 gm/dL (14.0-18.0); MCH 33.3 pg (26.0-34.0); MCHC 33.7 g/dL (28.0-37.0); RBC 4.06 mil/uL (4.50-6.00); RDW 15.3 % (10.5-14.5); WBC 5.2 thou/uL (4.0-11.0)
[2017-02-15 04:28] LABS: ALBUMIN 2.2 g/dL (3.4-5.0); CALCIUM 8.7 mg/dL (8.5-10.1); CREATININE 1.8 mg/dL (0.7-1.3); PHOSPHORUS 3.1 mg/dL (2.5-4.9); POTASSIUM 3.4 mmol/L (3.5-5.1); TOTAL BILIRUBIN 3.8 mg/dL (<0.1-1.0); TOTAL PROTEIN 5.8 g/dL (6.4-8.2)
[2017-02-16] VITALS (23 sets, daily range): BP systolic 123–160; BP diastolic 78–107
[2017-02-16 05:31] LABS: ALBUMIN 2.3 g/dL (3.4-5.0); CALCIUM 9.4 mg/dL (8.5-10.1); CREATININE 1.5 mg/dL (0.7-1.3); PHOSPHORUS 3.3 mg/dL (2.5-4.9); POTASSIUM 3.4 mmol/L (3.5-5.1)
[2017-02-17] VITALS (20 sets, daily range): BP systolic 115–149; BP diastolic 77–111
[2017-02-17 06:11] LABS: ALBUMIN 2.3 g/dL (3.4-5.0); CALCIUM 9.4 mg/dL (8.5-10.1); CREATININE 1.4 mg/dL (0.7-1.3); PHOSPHORUS 3.5 mg/dL (2.5-4.9); POTASSIUM 3.6 mmol/L (3.5-5.1)
[2017-02-17 20:04] LABS: HEMATOCRIT 40.3 % (42.0-52.0); HEMOGLOBIN 13.4 gm/dL (14.0-18.0); MCHC 33.3 g/dL (28.0-37.0); RBC 4.07 mil/uL (4.50-6.00); RDW 14.9 % (10.5-14.5); WBC 5.4 thou/uL (4.0-11.0)
[2017-02-17 20:17] LABS: APTT 23.3 Seconds (24.5-32.8); INR 1.1; PROTIME 11.5 Seconds (9.3-11.4)
[2017-02-18] VITALS (32 sets, daily range): BP systolic 96–179; BP diastolic 70–117
[2017-02-18 05:28] LABS: ALBUMIN 2.6 g/dL (3.4-5.0); CALCIUM 9.7 mg/dL (8.5-10.1); CREATININE 1.4 mg/dL (0.7-1.3); PHOSPHORUS 3.7 mg/dL (2.5-4.9); POTASSIUM 3.7 mmol/L (3.5-5.1)
[2017-02-18 17:17] LABS: CALCIUM 9.1 mg/dL (8.5-10.1); CREATININE 1.7 mg/dL (0.7-1.3); POTASSIUM 3.1 mmol/L (3.5-5.1)
[2017-02-18 19:07] LABS: ALBUMIN 2.4 g/dL (3.4-5.0); CALCIUM 9.1 mg/dL (8.5-10.1); CREATININE 1.7 mg/dL (0.7-1.3); POTASSIUM 3.1 mmol/L (3.5-5.1); TOTAL BILIRUBIN 8.6 mg/dL (<0.1-1.0); TOTAL PROTEIN 6.3 g/dL (6.4-8.2)
[2017-02-19] VITALS (25 sets, daily range): BP systolic 120–184; BP diastolic 72–114
[2017-02-19 05:32] LABS: ALBUMIN 2.4 g/dL (3.4-5.0); CALCIUM 9.2 mg/dL (8.5-10.1); CREATININE 1.5 mg/dL (0.7-1.3); PHOSPHORUS 3.7 mg/dL (2.5-4.9); POTASSIUM 3.6 mmol/L (3.5-5.1)
[2017-02-20] VITALS (26 sets, daily range): BP systolic 108–176; BP diastolic 62–141
[2017-02-20 06:55] LABS: ALBUMIN 2.8 g/dL (3.4-5.0); CALCIUM 9.6 mg/dL (8.5-10.1); CREATININE 1.5 mg/dL (0.7-1.3); PHOSPHORUS 3.5 mg/dL (2.5-4.9); POTASSIUM 3.8 mmol/L (3.5-5.1)
[2017-02-20 10:21] LABS: ALBUMIN 2.8 g/dL (3.4-5.0); DIRECT BILIRUBIN 2.6 mg/dL (<0.1-0.3); TOTAL BILIRUBIN 3.9 mg/dL (<0.1-1.0); TOTAL PROTEIN 7.3 g/dL (6.4-8.2)
[2017-02-21] VITALS (21 sets, daily range): BP systolic 105–169; BP diastolic 66–147
[2017-02-21 05:39] LABS: ALBUMIN 2.9 g/dL (3.4-5.0); CALCIUM 10.2 mg/dL (8.5-10.1); CREATININE 1.3 mg/dL (0.7-1.3); PHOSPHORUS 3.6 mg/dL (2.5-4.9); POTASSIUM 3.6 mmol/L (3.5-5.1)
[2017-02-21 15:58] LABS: ABG SAMPLE TYPE ARTERIAL; BE(vivo) 9.8 mmol/L (-2 to +3); LACTATE 1.38 mmol/L (0.5-2.0); O2Hb 97.2 % (92.0-98.0); PCO2 48.5 mmHg (35.0-45.0); PO2 121.1 mmHg (80.0-100.0); pH 7.476 (7.360-7.450); sO2 98.5 % (92.0-98.0); tCO2 36.5 mmol/L (24.0-30.0)
[2017-02-21 15:59] LABS: STICK SITE R.RADIAL
[2017-02-21 16:00] LABS: ABG COMMENT CPAP TRIAL X 1 HOUR; Pressure Support 8 cm H20
[2017-02-21 22:13] LABS: HEMATOCRIT 37.4 % (42.0-52.0); HEMOGLOBIN 12.6 gm/dL (14.0-18.0); MCH 33.2 pg (26.0-34.0); MCHC 33.7 g/dL (28.0-37.0); MCV 98.6 fL (80.0-100.0); RBC 3.79 mil/uL (4.50-6.00); RDW 14.9 % (10.5-14.5); WBC 9.8 thou/uL (4.0-11.0)
[2017-02-21 22:32] LABS: ALBUMIN 2.5 g/dL (3.4-5.0); CALCIUM 9.7 mg/dL (8.5-10.1); CREATININE 1.4 mg/dL (0.7-1.3); POTASSIUM 3.8 mmol/L (3.5-5.1); TOTAL BILIRUBIN 2.8 mg/dL (<0.1-1.0); TOTAL PROTEIN 6.9 g/dL (6.4-8.2)
[2017-02-22 03:47] VITALS: BP 130/71
[2017-02-22 06:03] LABS: HEMATOCRIT 38.6 % (42.0-52.0); HEMOGLOBIN 12.9 gm/dL (14.0-18.0); MCH 33.5 pg (26.0-34.0); MCHC 33.5 g/dL (28.0-37.0); MCV 100.2 fL (80.0-100.0); RBC 3.85 mil/uL (4.50-6.00); WBC 9.8 thou/uL (4.0-11.0)
[2017-02-22 06:22] LABS: ALBUMIN 2.5 g/dL (3.4-5.0); CALCIUM 9.7 mg/dL (8.5-10.1); CREATININE 1.6 mg/dL (0.7-1.3); POTASSIUM 3.8 mmol/L (3.5-5.1); TOTAL BILIRUBIN 2.6 mg/dL (<0.1-1.0); TOTAL PROTEIN 7.2 g/dL (6.4-8.2)
[2017-02-22 07:47] VITALS: BP 152/84
[2017-02-22 12:34] VITALS: BP 157/86
[2017-02-22 15:36] LABS: URINE BILIRUBIN NEGATIVE (Negative); URINE BLOOD 1+ (Negative); URINE COLOR YELLOW; URINE GLUCOSE-RANDOM* NEGATIVE (Negative); URINE KETONES NEGATIVE (Negative); URINE PROTEIN (DIPSTICK) 1+ (Negative); URINE UROBILINOGEN >= 8.0 E.U./dl (0.2-1.0)
[2017-02-22 15:49] LABS: URINE LEUKOCYTES-REFLEX TRACE (Negative)
[2017-02-22 15:50] VITALS: BP 139/84
[2017-02-22 15:54] LABS: CASTS None Seen /LPF (None Seen); CRYSTALS None Seen /LPF (None Seen); SQUAMOUS 0-3 Few /LPF (0-3); URINE RBC 3-10 Few /HPF (0-2); URINE WBC-REFLEX 0-5 Rare /HPF (0-5)
[2017-02-22 19:18] VITALS: BP 150/95
[2017-02-23 04:56] VITALS: BP 170/94
[2017-02-23 07:11] LABS: HEMATOCRIT 37.8 % (42.0-52.0); HEMOGLOBIN 12.5 gm/dL (14.0-18.0); MCH 33.1 pg (26.0-34.0); MCV 100.3 fL (80.0-100.0); RBC 3.77 mil/uL (4.50-6.00); RDW 14.7 % (10.5-14.5); WBC 9.7 thou/uL (4.0-11.0)
[2017-02-23 07:27] LABS: ALBUMIN 2.6 g/dL (3.4-5.0); CALCIUM 9.9 mg/dL (8.5-10.1); CREATININE 1.6 mg/dL (0.7-1.3); MAGNESIUM 2.2 mg/dL (1.8-2.4); POTASSIUM 3.4 mmol/L (3.5-5.1); TOTAL BILIRUBIN 2.5 mg/dL (<0.1-1.0); TOTAL PROTEIN 7.4 g/dL (6.4-8.2)
[2017-02-23 08:48] VITALS: BP 153/84
[2017-02-23 12:31] VITALS: BP 145/82
[2017-02-23 16:39] VITALS: BP 154/82
[2017-02-23 19:35] VITALS: BP 182/88
[2017-02-24 04:05] VITALS: BP 157/98
[2017-02-24 06:07] LABS: URINE BILIRUBIN NEGATIVE (Negative); URINE BLOOD 1+ (Negative); URINE COLOR YELLOW; URINE GLUCOSE-RANDOM* NEGATIVE (Negative); URINE KETONES NEGATIVE (Negative); URINE LEUKOCYTES-REFLEX NEGATIVE (Negative); URINE PROTEIN (DIPSTICK) TRACE (Negative); URINE UROBILINOGEN >= 8.0 E.U./dl (0.2-1.0)
[2017-02-24 07:21] LABS: HEMOGLOBIN 13.7 gm/dL (14.0-18.0); MCH 34.2 pg (26.0-34.0); MCHC 34.2 g/dL (28.0-37.0); MCV 99.9 fL (80.0-100.0); RDW 14.6 % (10.5-14.5); WBC 9.8 thou/uL (4.0-11.0)
[2017-02-24 07:35] LABS: INR 1.1
[2017-02-24 07:40] LABS: ALBUMIN 2.8 g/dL (3.4-5.0); CALCIUM 9.9 mg/dL (8.5-10.1); CREATININE 1.8 mg/dL (0.7-1.3); DIGOXIN 1.7 ng/mL (0.9-2.0); MAGNESIUM 2.4 mg/dL (1.8-2.4); POTASSIUM 3.5 mmol/L (3.5-5.1); TOTAL BILIRUBIN 2.3 mg/dL (<0.1-1.0); TOTAL PROTEIN 8.1 g/dL (6.4-8.2)
[2017-02-24 08:00] VITALS: BP 148/96
[2017-02-24 08:02] LABS: SQUAMOUS 0-3 Few /LPF (0-3)
[2017-02-24 08:03] LABS: FINE GRANULAR CASTS 0-3 Few /LPF (None Seen); HYALINE CASTS 0-3 Few /LPF (None Seen); URINE RBC 3-10 Few /HPF (0-2)
[2017-02-24 08:04] LABS: CRYSTALS None Seen /LPF (None Seen); URINE WBC-REFLEX 0-5 Rare /HPF (0-5)
[2017-02-24 12:12] VITALS: BP 149/80
[2017-02-24 13:11] LABS: ALPHA TOCOPHEROL 13.8 mg/L (5.3-17.5)
[2017-02-24 15:02] LABS: URINE BILIRUBIN NEGATIVE (Negative); URINE BLOOD 2+ (Negative); URINE COLOR YELLOW; URINE GLUCOSE-RANDOM* NEGATIVE (Negative); URINE KETONES NEGATIVE (Negative); URINE NITRITE NEGATIVE (Negative); URINE PROTEIN (DIPSTICK) TRACE (Negative); URINE UROBILINOGEN >= 8.0 E.U./dl (0.2-1.0)
[2017-02-24 15:22] LABS: SQUAMOUS None Seen /LPF (0-3)
[2017-02-24 15:23] LABS: BACTERIA 1-9 Few /HPF (None Seen); CASTS None Seen /LPF (None Seen); CRYSTALS None Seen /LPF (None Seen); URINE WBC 0-5 Rare /HPF (0-5)
[2017-02-24 15:24] VITALS: BP 132/74
[2017-02-25 05:22] VITALS: BP 99/69
[2017-02-25 05:42] LABS: HEMOGLOBIN 13.2 gm/dL (14.0-18.0); MCH 33.4 pg (26.0-34.0); MCHC 32.9 g/dL (28.0-37.0); MCV 101.6 fL (80.0-100.0); RBC 3.94 mil/uL (4.50-6.00); RDW 14.8 % (10.5-14.5); WBC 7.7 thou/uL (4.0-11.0)
[2017-02-25 05:44] VITALS: BP 99/69
[2017-02-25 06:02] LABS: ALBUMIN 2.3 g/dL (3.4-5.0); CALCIUM 9.5 mg/dL (8.5-10.1); CREATININE 2.4 mg/dL (0.7-1.3); MAGNESIUM 2.5 mg/dL (1.8-2.4); POTASSIUM 3.9 mmol/L (3.5-5.1); TOTAL PROTEIN 7.3 g/dL (6.4-8.2)
[2017-02-25 11:58] LABS: ABG SAMPLE TYPE ARTERIAL; BE(vivo) 8.4 mmol/L (-2 to +3); HCO3 33.9 mmol/L (22.0-26.0); LACTATE 1.78 mmol/L (0.5-2.0); O2(CT) 18.4 mL/dL (15.0-23.0); O2Hb 90.5 % (92.0-98.0); PCO2 49.9 mmHg (35.0-45.0); sO2 92.4 % (92.0-98.0); tCO2 35.4 mmol/L (24.0-30.0)
[2017-02-25 11:59] LABS: STICK SITE L.RADIAL
[2017-02-25 12:00] VITALS: BP 105/51
[2017-02-25 12:00] LABS: Pressure Support 8 cm H20
[2017-02-25 17:30] VITALS: BP 107/67
[2017-02-25 20:09] VITALS: BP 124/65
[2017-02-26 03:50] VITALS: BP 151/98
[2017-02-26 06:08] LABS: HEMATOCRIT 39.1 % (42.0-52.0); HEMOGLOBIN 13.1 gm/dL (14.0-18.0); MCH 33.6 pg (26.0-34.0); MCHC 33.5 g/dL (28.0-37.0); MCV 100.4 fL (80.0-100.0); RBC 3.89 mil/uL (4.50-6.00); RDW 14.8 % (10.5-14.5); WBC 7.6 thou/uL (4.0-11.0)
[2017-02-26 06:19] LABS: CALCIUM 9.5 mg/dL (8.5-10.1); POTASSIUM 3.8 mmol/L (3.5-5.1)
[2017-02-26 06:25] LABS: INR 1.2
[2017-02-26 08:13] VITALS: BP 140/86
[2017-02-26 12:11] VITALS: BP 111/65
[2017-02-26 16:00] VITALS: BP 94/54
[2017-02-26 19:49] VITALS: BP 104/59
[2017-02-27 04:54] VITALS: BP 115/63
[2017-02-27 05:34] LABS: HEMATOCRIT 35.7 % (42.0-52.0); HEMOGLOBIN 11.9 gm/dL (14.0-18.0); MCH 33.3 pg (26.0-34.0); MCHC 33.4 g/dL (28.0-37.0); MCV 99.8 fL (80.0-100.0); RBC 3.58 mil/uL (4.50-6.00); RDW 14.1 % (10.5-14.5); WBC 6.6 thou/uL (4.0-11.0)
[2017-02-27 05:45] LABS: INR 1.7; PROTIME 17.5 Seconds (9.3-11.4)
[2017-02-27 06:01] LABS: CREATININE 1.8 mg/dL (0.7-1.3); POTASSIUM 3.7 mmol/L (3.5-5.1)
[2017-02-27 11:56] VITALS: BP 129/51
[2017-02-27 16:10] VITALS: BP 110/66
[2017-02-27 19:22] VITALS: BP 99/55
[2017-02-28 03:34] VITALS: BP 95/66
[2017-02-28 05:06] LABS: HEMATOCRIT 34.7 % (42.0-52.0); HEMOGLOBIN 11.3 gm/dL (14.0-18.0); MCH 32.4 pg (26.0-34.0); MCHC 32.7 g/dL (28.0-37.0); MCV 99.2 fL (80.0-100.0); RBC 3.49 mil/uL (4.50-6.00); RDW 13.9 % (10.5-14.5); WBC 11.9 thou/uL (4.0-11.0)
[2017-02-28 05:12] LABS: CALCIUM 8.4 mg/dL (8.5-10.1); POTASSIUM 3.9 mmol/L (3.5-5.1)
[2017-02-28 05:17] LABS: INR 2.2; PROTIME 21.8 Seconds (9.3-11.4)
[2017-02-28 07:04] LABS: ABG SAMPLE TYPE ARTERIAL; HCO3 29.7 mmol/L (22.0-26.0); LACTATE 2.76 mmol/L (0.5-2.0); O2(CT) 17.8 mL/dL (15.0-23.0); O2Hb 95.7 % (92.0-98.0); PCO2 35.8 mmHg (35.0-45.0); PO2 77.5 mmHg (80.0-100.0); STICK SITE R.BRACHIAL; TIDAL VOLUME 500 ml; pH 7.537 (7.360-7.450); sO2 96.7 % (92.0-98.0); tCO2 30.8 mmol/L (24.0-30.0)
[2017-02-28 07:34] VITALS: BP 95/56
[2017-02-28 16:29] VITALS: BP 95/52
[2017-02-28 19:47] VITALS: BP 76/79
[2017-02-28 23:45] VITALS: BP 86/56
[2017-03-01 04:24] VITALS: BP 107/59
[2017-03-01 05:35] LABS: HEMATOCRIT 35.2 % (42.0-52.0); HEMOGLOBIN 11.7 gm/dL (14.0-18.0); MCH 32.8 pg (26.0-34.0); MCHC 33.2 g/dL (28.0-37.0); MCV 98.7 fL (80.0-100.0); RBC 3.57 mil/uL (4.50-6.00); RDW 13.9 % (10.5-14.5); WBC 11.2 thou/uL (4.0-11.0)
[2017-03-01 05:41] LABS: CALCIUM 8.4 mg/dL (8.5-10.1); CREATININE 1.9 mg/dL (0.7-1.3); POTASSIUM 3.4 mmol/L (3.5-5.1)
[2017-03-01 06:03] LABS: INR 3.8
[2017-03-01 08:02] VITALS: BP 97/59
[2017-03-01 17:29] VITALS: BP 133/69
[2017-03-01 20:53] VITALS: BP 131/59
[2017-03-02 05:04] LABS: INR 3.3; PROTIME 33.3 Seconds (9.3-11.4)
[2017-03-02 06:12] VITALS: BP 96/64
[2017-03-02 07:30] VITALS: BP 98/62
[2017-03-02 13:11] VITALS: BP 119/87
[2017-03-02 17:00] VITALS: BP 104/65
[2017-03-02 20:03] VITALS: BP 103/65
[2017-03-03 04:31] VITALS: BP 78/58
[2017-03-03 05:02] LABS: CALCIUM 8.8 mg/dL (8.5-10.1); CREATININE 2.4 mg/dL (0.7-1.3); POTASSIUM 4.6 mmol/L (3.5-5.1)
[2017-03-03 05:05] LABS: INR 3.5; PROTIME 34.8 Seconds (9.3-11.4)
[2017-03-03 05:17] LABS: DIGOXIN 2.6 ng/mL (0.9-2.0)
[2017-03-03 08:27] VITALS: BP 85/57
== END 2017-03-03 13:31 | DRG 4 ==
LOC: ICU 02:03 → 4W 02-21 18:55
PROVIDERS: Hospitalist; Internal Medicine; Internal Medicine Cardiovascular Disease; Internal Medicine Nephrology; Internal Medicine Pulmonary Disease; Nurse Practitioner Family; Psychiatry & Neurology Neurology; Surgery
PROC: 5A1955Z Respiratory Ventilation, Greater than 96 Consecutive Hours (ICD-10-PCS; 2017-02-10)
PROC: 0B113F4 Bypass Trachea to Cutaneous with Tracheostomy Device, Percutaneous Approach (ICD-10-PCS; 2017-02-10)
PROC: 02HV33Z Insertion of Infusion Device into Superior Vena Cava, Percutaneous Approach (ICD-10-PCS; principal; 2017-02-13)
PROC: 0DH63UZ Insertion of Feeding Device into Stomach, Percutaneous Approach (ICD-10-PCS; 2017-02-18)
DX: A41.9 Sepsis, unspecified organism (principal); J96.01 Acute respiratory failure with hypoxia; J96.02 Acute respiratory failure with hypercapnia; R65.21 Severe sepsis with septic shock; G93.41 Metabolic encephalopathy; N18.6 End stage renal disease; I50.23 Acute on chronic systolic (congestive) heart failure; E43 Unspecified severe protein-calorie malnutrition; I42.9 Cardiomyopathy, unspecified; N17.9 Acute kidney failure, unspecified; R18.8 Other ascites; R04.2 Hemoptysis; E87.0 Hyperosmolality and hypernatremia; G93.1 Anoxic brain damage, not elsewhere classified; I13.2 Hypertensive heart and chronic kidney disease with heart failure and with stage 5 chronic kidney disease, or end stage renal disease; I48.91 Unspecified atrial fibrillation; K21.9 Gastro-esophageal reflux disease without esophagitis; J44.9 Chronic obstructive pulmonary disease, unspecified; R00.1 Bradycardia, unspecified; R57.0 Cardiogenic shock; R41.0 Disorientation, unspecified; I95.9 Hypotension, unspecified; E87.5 Hyperkalemia; Z66 Do not resuscitate; R74.0 Nonspecific elevation of levels of transaminase and lactic acid dehydrogenase [LDH]; E78.5 Hyperlipidemia, unspecified; K72.90 Hepatic failure, unspecified without coma; K74.60 Unspecified cirrhosis of liver; Z68.21 Body mass index [BMI] 21.0-21.9, adult; Z80.0 Family history of malignant neoplasm of digestive organs; I25.2 Old myocardial infarction; Z88.1 Allergy status to other antibiotic agents; Z79.899 Other long term (current) drug therapy; Z86.19 Personal history of other infectious and parasitic diseases
CPT/HCPCS: 10047; 10078; 27000; 50101; 50152; 50386; 50403; 56525; 62110; 62900; 85010